=== PATIENT | female | born 1945 | race Caucasian/White ===

== ENCOUNTER 2017-11-11 09:27 | Day surgery (SDC) | payer OTHER ==
[~2017-11-11] VITALS: Ht 154.9 cm; Wt 80.7 kg
[~2017-11-11 09:27] MED LIST: ALBU8.5H8 IH; ASPI-1012 PO; ATOR40TA71 PO; FAMO20TA8 PO; FLUT15.87 NS; FLUT1DIS4 IH; HC2530O RC; LEVE750T10 PO; LOSA50TA37 PO; METH2.5T6 PO; METO-409 PO; OMEP20CA10 PO; SODIUM CHLORIDE 0.9% 1000ML 1,000 ML IV ONE
[2017-11-11 10:14] VITALS: BP 142/78
[2017-11-11] MEDS ORDERED: GLYCOPYRROLATE 0.2 MG/ML 5 ML VIAL ONE (11:43)
[2017-11-11] MEDS ORDERED: LIDOCAINE HCL 2% 20ML ONE (11:43)
[2017-11-11] MEDS ORDERED: PROPOFOL 10 MG/ML 20ML VIAL IV ONE (11:43)
[2017-11-11] MEDS ORDERED: FENTANYL CITRATE PF 50 MCG/1 ML 2ML VIAL ONE (11:46)
[2017-11-11 12:18] VITALS: BP 105/42
== END 2017-11-11 13:05 | disposition home or self-care (01) ==
LOC: DAH 09:27
PROVIDERS: ATTEND Internal Medicine Gastroenterology
DX: K63.5 Polyp of colon (principal); K57.30 Diverticulosis of large intestine without perforation or abscess without bleeding; K21.9 Gastro-esophageal reflux disease without esophagitis; I10 Essential (primary) hypertension; I25.10 Atherosclerotic heart disease of native coronary artery without angina pectoris; E78.5 Hyperlipidemia, unspecified; G40.909 Epilepsy, unspecified, not intractable, without status epilepticus; M19.90 Unspecified osteoarthritis, unspecified site; M10.9 Gout, unspecified; F32.9 Major depressive disorder, single episode, unspecified; Z79.899 Other long term (current) drug therapy; Z98.890 Other specified postprocedural states; Z90.710 Acquired absence of both cervix and uterus; Z90.49 Acquired absence of other specified parts of digestive tract
CPT/HCPCS: 45380; 88305; 93005; A4606; J2704; J3010; J3490 ×2; J7030